=== PATIENT | male | born 1960 | race Caucasian/White ===

== ENCOUNTER 2024-01-07 08:27 | Observation (INO) | payer MEDICARE, SELFPAY ==
[2024-01-07] VITALS (7 sets, daily range): BP systolic 119–147; BP diastolic 33–82; PULSE 79–92; TEMP 36.9–37.6; O2SAT 93–97; BMI 25.7; BMI 25.8
[2024-01-07 09:28] LABS: Hematocrit 40.8 % (42.0-54.0); Hemoglobin 14.6 g/dL (14.0-18.0); Mean Corpuscular HGB Conc 35.8 g/dL (29.9-35.2); Mean Corpuscular Hemoglobin 33.6 pg (25.9-34.0); Mean Platelet Volume 10.1 fL (9.5-13.5); Platelet Count 90 10^3/uL (150-450); Red Blood Count 4.34 10^6/uL (4.70-6.10); Red Cell Distribution Width 12.1 % (11.0-15.0); White Blood Count 3.2 10^3/uL (4.0-11.0)
[2024-01-07 09:34] LABS: Erythrocyte Sedimentation Rate 51 mm/hr (<=20)
[2024-01-07 09:44] LABS: Anion Gap 14.7; BUN Creatinine Ratio 15.6; C Reactive Protein 14.75 mg/dL (<=0.50); Calcium 8.7 mg/dL (8.5-10.1); Chloride 102 mmol/L (98-107); Estimated GFR (African America >60 (>=60); Estimated GFR (Non-African Ame >60 (>=60); Glucose 171 mg/dL (74-106); Potassium 3.7 mmol/L (3.5-5.1); Sodium 138 mmol/L (136-145)
[2024-01-07 09:46] LABS: Lymphocytes Absolute Manual 0.25 10^3/uL (1.20-3.80); Monocytes Absolute Manual 0.09 10^3/uL (0.30-0.80); Segmented Neut Absolute Manual 2.81 10^3/uL (1.4-6.5)
[2024-01-07 09:48] LABS: Lactate/Lactic Acid 2.1 mmol/L (0.4-2.0)
--- NOTE | 2024-01-07 11:07 | P.HP_ITS ---
HPI H&P: HPI History of Present Illness Chief complaint: LEFT FOOT SWELLING Narrative: Patient presented to the emergency room after being treated for foot infection. Was seen in urgent care earlier in the week, line was placed for where the erythema was added at the time, erythema was spreading, pressure increasing as well. Patient had fever up to 103. In the emergency room the erythema is outside the line of demarcation. When I saw the patient in the emergency room, patient was resting comfortably in bed, no complaints other than the left foot. Opioid HPI Opioid Management Most Recent Pain and Opioid Data: Last Pain Scale 4 01/07/24 09:08 Review of Systems ROS Status of ROS 10 or more systems reviewed and unremark able except as noted in history and below Meds Home Medications and Allergies Home Medications ?Medication ?Instructions ?Recorded ?Confirmed ?Type cephalexin 500 mg capsule 500 mg PO Q12H 01/07/24 01/07/24 History timolol maleate 0.5 % eye drops 1 drp ophthalmic (eye) .qd 01/07/24 01/07/24 History Allergies Allergy/AdvReac Type Severity Reaction Status Date / Time No Known Drug Allergies Allergy Verified 01/07/24 08:38 Exam Constitutional Vital Signs, click to edit/add: Last Vital Signs Temp 99.3 F 01/07/24 08:38 Pulse 79 01/07/24 08:38 Resp 18 01/07/24 08:38 BP 147/82 H 01/07/24 08:38 Pulse Ox 97 01/07/24 08:38 O2 Del Method Room Air 01/07/24 08:38 Documenting provider has reviewed patient's vital signs: yes Common normals: no apparent distress Chest Common normals: inspection of chest normal Respiratory Common normals: normal respiratory effort Cardio Common normals: regular rate, regular rhythm and no murmurs GI Common normals: Normal to inspection, nondistended, normoactive bowel sounds present Extremity Common normals: abnormal to inspection (Cellulitis outside the line of the demarcation left foot.) Results Labs Labs: Short CBC 01/07/24 Range/Units 09:01 WBC 3.2 L (4.0-11.0) 10^3/uL Hgb 14.6 (14.0-18.0) g/dL Hct 40.8 L (42.0-54.0) % Plt Count 90 L (150-450) 10^3/uL BMP 01/07/24 09:01 Sodium 138 Potassium 3.7 Chloride 102 Carbon Dioxide 25.0 BUN 17.0 Creatinine 1.09 Glucose 171 H Calcium 8.7 Assessment and Plan Assessment and Plan (1) Cellulitis: Plan Admission findings: Patient with outpatient treatment for left foot cellulitis with cephalexin 500 mg twice a day, with fever 103. Progressive outside line of demarcation. In ER patient found to have positive lactic acidosis, neutropenia, significant elevated sedimentation rate and CRP and hyperglycemia resulting in severe sepsis (neutropenia, Fever (102), + lactic acidosis with source of infect ion left foot).-this is as a result of the cellulitis of his left foot. Failed outpatient treatment. Admitted for IV antibiotics. Blood cultures pending. Patient with a history of cellulitis of the same leg in the past that progressed into severe sepsis and required long-term hospitalization. Neutropenia-possibly due to sepsis-monitor daily Hyperglycemia on admission-this is likely just a nonfasting state-monitor daily Thrombocytopenia-likely possibly related to the severe sepsis as outlined above, monitor daily Glaucoma-continue with home medication Admission findings: Patient does meet criteria for severe sepsis as outlined above, currently blood pressure stable so hold off on large fluid boluses. Patient already with edema in lower extremity. Because the source of the infection appears to be localized to the left foot, start patient off as observation status, possible discharge in a.m.
--- NOTE | 2024-01-07 11:09 | ED_ITS ---
HPI HPI - General Adult General Chief complaint: Extremity Injury, Lower Stated complaint: LEFT FOOT SWELLING Time Seen by Provider: 01/07/24 08:43 Source: patient Mode of arrival: walk-in Limitations: no limitations History of Present Illness HPI narrative: 63-year-old male to the emergency department she went cellulitis of the left lower extremity. Symptoms began about 3 days ago. He reports that he was seen in an urgent care 2 days ago and started on Keflex. He has taken 3 doses of Keflex. They outlined the area of cellulitis and it is extended beyond that despite being on the Keflex. He denies any fever, sweats, chills. He has a history of lymphedema secondary to remote trauma in the lower extremity. Reports he is otherwise healthy. Related Data Home Medications ?Medication ?Instructions ?Recorded ?Confirmed cephalexin 500 mg capsule 500 mg PO Q12H 01/07/24 01/07/24 timolol maleate 0.5 % eye drops 1 drp ophthalmic (eye) .qd 01/07/24 01/07/24 Allergies Allergy/AdvReac Type Severity Reaction Status Date / Time No Known Drug Allergies Allergy Verified 01/07/24 08:38 Opioid HPI Opioid Management Most Recent Opioid Data: Last Pain Scale 4 01/07/24 09:08 Review of Systems ROS Status of ROS 10 or more systems reviewed and unremark able except as noted in h istory and below Exam Narrative Exam Narrative: VITALS: I have reviewed the triage vital signs. GENERAL: Well developed, well appearing adult in no acute distress. NEURO: Alert and oriented. Moves all extremities. Face is symmetric and expressive. EYES: PERRL. No scleral icterus or conjunctival injection. No discharge. HENT: Normocephalic, atraumatic. Hearing is grossly intact. Nares grossly patent and without discharge. Mucous membranes moist. NECK: No JVD. Patient moves neck without restriction. CARDIO: Rhythm regular. Normal rate. No murmur, rub, or gallop. Pulses equal bilaterally in the upper and lower extremity. No lower extremity edema. PULM: Lungs clear to auscultation in all ochoa. No wheezes, rales, or rhonchi. No conversational dyspnea. No splinting, stridor, or accessory muscle use. GI/: Abdomen is soft and non-tender. Normoactive bowel sounds. Left lower: Trace edema about the lower extremity. There is erythema, warmth, erythematous rash extending above the ankle. Redness is extending beyond the marked area. No crepitus. No obvious wounds. No abscess. Limb is neurovascularly intact SKIN: Warm and dry. Normal turgor. No rash or lesions appreciated. PSYCH: Mood, affect, and interaction is appropriate to the setting. Constitutional Vital Signs, click to edit/add: Last Vital Signs Temp 99.3 F 01/07/24 08:38 Pulse 79 01/07/24 08:38 Resp 18 01/07/24 08:38 BP 147/82 H 01/07/24 08:38 Pulse Ox 97 01/07/24 08:38 O2 Del Method Room Air 01/07/24 08:38 Course Vital Signs Vital signs: Vital Signs Temperature 99.3 F 01/07/24 08:38 Pulse Rate 79 01/07/24 08:38 Respiratory Rate 18 01/07/24 08:38 Blood Pressure 147/82 H 01/07/24 08:38 Pulse Oximetry 97 01/07/24 08:38 Oxygen Delivery Method Room Air 01/07/24 08:38 Temperature 99.3 F 01/07/24 08:38 Pulse Rate 79 01/07/24 08:38 Respiratory Rate 18 01/07/24 08:38 Blood Pressure 147/82 H 01/07/24 08:38 Pulse Oximetry 97 01/07/24 08:38 Oxygen Delivery Method Room Air 01/07/24 08:38 Medical Decision Making MDM Narrative Medical decision making narrative: 63-year-old male to the emergency department chief complaint cellulitis of left lower extremity. Vital stable, the patient is afebrile. Limb is neurovascularly intact. Given failed outpatient course of antibiotics lab work is ordered. Does have a leukopenia and thrombocytopenia which are chronic in nature but worse today. Mild lactic acidosis. Will refer the patient for observation given worsening cellulitis and failed o utpatient treatment with oral antibiotics. Has a history of cellulitis with sepsis in this extremity Dr. Caldwell will admit. Vancomycin ordered. Medical Records Medical records reviewed: Yes I reviewed the patient's medical records Lab Data Lab results reviewed: Yes I reviewed the patient's lab results Labs: Lab Results 01/07/24 Range/Units 09:01 WBC 3.2 L (4.0-11.0) 10^3/uL RBC 4.34 L (4.70-6.10) 10^6/uL Hgb 14.6 (14.0-18.0) g/dL Hct 40.8 L (42.0-54.0) % MCV 94.0 (80.0-94.0) fL MCH 33.6 (25.9-34.0) pg MCHC 35.8 H (29.9-35.2) g/dL RDW 12.1 (11.0-15.0) % Plt Count 90 L (150-450) 10^3/uL MPV 10.1 (9.5-13.5) fL Seg Neuts % (Manual) 88.0 Band Neutrophils % 1.0 (0-5) % Lymphocytes % (Manual) 8.0 L (20.5-60.0) % Monocytes % (Manual) 3.0 (1.7-12.0) % Eosinophils % (Manual) 0.0 L (0.9-7.0) % Basophils % (Manual) 0.0 L (0.2-2.0) % Neutrophils # (Manual) 2.81 (1.4-6.5) 10^3/uL Band Neutrophils # 0.0 (0.0-0.3) 10^3/uL Lymphocytes # (Manual) 0.25 L (1.20-3.80) 10^3/uL Monocytes # (Manual) 0.09 L (0.30-0.80) 10^3/uL Eosinophils # (Manual) 0.00 (0.00-0.70) 10^3/uL Basophils # (Manual) 0.00 (0.00-0.10) 10^3/uL ESR 51 H (<=20) mm/hr Sodium 138 (136-145) mmol/L Potassium 3.7 (3.5-5.1) mmol/L Chloride 102 (98-107) mmol/L Carbon Dioxide 25.0 (21.0-32.0) mmol/L Anion Gap 14.7 BUN 17.0 (7.0-18.0) mg/dL Creatinine 1.09 (0.70-1.30) mg/dL Est GFR ( Amer) >60 (>=60) Est GFR (Non-Af Amer) >60 (>=60) BUN/Creatinine Ratio 15.6 Glucose 171 H (74-106) mg/dL Lactate 2.1 H (0.4-2.0) mmol/L Calcium 8.7 (8.5-10.1) mg/dL C-Reactive Protein 14.75 H (<=0.50) mg/dL Discharge Plan Discharge Chief Complaint: Extremity Injury, Lower Clinical Impression: Cellulitis, Failure of outpatient treatment, Acidosis, lactic Patient Disposition: Admitted as Observation Time of Disposition Decision: 11:13 Condition: Fair Prescriptions / Home Meds: No Action cephalexin 500 mg capsule 500 mg PO Q12H timolol maleate 0.5 % drops 1 drp OPHTHALMIC (EYE) .qd Print Language: Jamaican Referrals: Leandra Magana MD [Primary Care Provider] - 1 week
[2024-01-07] MEDS: VANCOMYCIN HCL 1,000 MG in 0.9 % SODIUM CHLORIDE 250 ML 250 MG IV (11:18)
[2024-01-07 11:26] LABS: Alanine Aminotransferase 33 U/L (16-63); Albumin Globulin Ratio 0.8; Alkaline Phosphatase 76 U/L (46-116); Aspartate Amino Transferase 29 U/L (15-37); Bilirubin Direct 0.2 mg/dL (0.0-0.2); Bilirubin Total 0.7 mg/dL (0.2-1.0); Globulin 3.9 g/dL; Total Protein 6.9 g/dL (6.4-8.2)
[2024-01-07] MEDS: PIPERACILLIN SODIUM/TAZOBACTAM 3.375 GM in 0.9 % SODIUM CHLORIDE 50 ML IV ×2 (13:39→21:17)
[2024-01-07] MEDS: 0.9 % SODIUM CHLORIDE 250 ML 10 ML IV (13:39)
[2024-01-07 14:15] LABS: Lactate/Lactic Acid 3.8 mmol/L (0.4-2.0)
[2024-01-07] MEDS: VANCOMYCIN HCL 1,000 MG in 0.9 % SODIUM CHLORIDE 250 ML 150 MG IV (23:07)
[2024-01-08 04:00] VITALS: BP 132/81; PULSE 80; TEMP 37.2; O2SAT 95
[2024-01-08 05:34] LABS: Eosinophils Percent Auto 0.5 % (0.9-7.0); Hematocrit 38.5 % (42.0-54.0); Hemoglobin 13.3 g/dL (14.0-18.0); Immature Granulocytes Abs Auto 0.01 10^3/uL (0.00-0.03); Immature Granulocytes Pct Auto 0.3 % (0.0-0.5); Lymphocytes Absolute Auto 0.8 10^3/uL (1.2-3.8); Lymphocytes Percent Auto 20.2 % (20.5-60.0); Mean Corpuscular HGB Conc 34.5 g/dL (29.9-35.2); Mean Corpuscular Hemoglobin 32.8 pg (25.9-34.0); Mean Corpuscular Volume 95.1 fL (80.0-94.0); Mean Platelet Volume 10.2 fL (9.5-13.5); Monocytes Absolute Auto 0.3 10^3/uL (0.3-0.8); Monocytes Percent Auto 6.7 % (1.7-12.0); Neutrophils Absolute Auto 2.7 10^3/uL (1.4-6.5); Neutrophils Percent Auto 72.3 % (43.0-75.0); Platelet Count 79 10^3/uL (150-450); Red Blood Count 4.05 10^6/uL (4.70-6.10); White Blood Count 3.7 10^3/uL (4.0-11.0)
[2024-01-08 05:41] LABS: Erythrocyte Sedimentation Rate 81 mm/hr (<=20)
[2024-01-08] MEDS: PIPERACILLIN SODIUM/TAZOBACTAM 3.375 GM in 0.9 % SODIUM CHLORIDE 50 ML IV (05:41)
[2024-01-08 05:52] LABS: Anion Gap 12.8; C Reactive Protein 8.07 mg/dL (<=0.50); Calcium 8.5 mg/dL (8.5-10.1); Carbon Dioxide 26.7 mmol/L (21.0-32.0); Chloride 104 mmol/L (98-107); Estimated GFR (African America >60 (>=60); Estimated GFR (Non-African Ame >60 (>=60); Glucose 111 mg/dL (74-106); Potassium 3.5 mmol/L (3.5-5.1); Sodium 140 mmol/L (136-145)
[2024-01-08 07:43] VITALS: BP 136/87; PULSE 55; TEMP 36.7; O2SAT 96
--- NOTE | 2024-01-08 07:55 | P.DS_ITS ---
DS: Providers Provider Date of admission: 01/07/24 11:23 Primary care physician: Leandra Magana MD Consults: 01/07/24 11:01 Consult to Pharmacy Routine Consulting Provider: Reason for consultation: Please [place] me when Med Rec is Updated Has provider been notified: No DS: Diagnosis Discharge Diagnosis (1) Cellulitis: Plan Admission findings: Patient with outpatient treatment for left foot cellulitis with cephalexin 500 mg twice a day, with fever 103. Progressive outside line of demarcation. In ER patient found to have positive lactic acidosis, neutropenia, significant elevated sedimentation rate and CRP and hyperglycemia resulting in severe sepsis (neutropenia, Fever (102), + lactic acidosis with source of infection left foot).-this is as a result of the cellulitis of his left foot. Failed outpatient treatment. Admitted for IV antibiotics. Improving at time of discharge Neutropenia-possibly due to sepsis-stable at the time of discharge, recommend workup as an outpatient Hyperglycemia on admission-this is likely just a nonfasting state-monitor daily Thrombocytopenia-Down somewhat at the time of discharge, would recommend following up with us as an outpatient has been low for quite some time Glaucoma-continue with home medication Admission findings: Patient does meet criteria for severe sepsis as outlined angelina burgess, currently blood pressure stable so hold off on large fluid boluses. Patient already with edema in lower extremity. Because the source of the infection appears to be localized to the left foot, start patient off as observation status, possible discharge in a.m. ? DS: Summary Hospital Course Hospital Course: Patient was admitted with failed outpatient treatment of cellulitis of his foot, placed on IV antibiotics, foot felt better to him, less swelling on the day of discharge, erythema is at the line and just slightly beyond the line of demarcation, but essentially the same as it was the previous day. Blood cultures are pending but nothing in the immediate rapid identification panel, at this point without further progression and somewhat improved, he will be discharged home in improving condition. Medications see list. Follow-up with PCP within the next week. Longstanding history of neutropenia and thrombocytopenia-recommend hematology workup as an outpatient Status at Discharge Overall status at discharge: patient is not back to baseline Time Spent with Patient Time attestation: Total time spent providing and/or coordinating discharge services: Time spent: greater than 30 minutes Exam Constitutional Vital Signs, click to edit/add: Last Vital Signs Temp 98.0 F 01/08/24 07:43 Pulse 55 L 01/08/24 07:43 Resp 18 01/08/24 04:00 BP 136/87 01/08/24 07:43 Pulse Ox 96 01/08/24 07:43 O2 Del Method Room Air 01/08/24 04:00 Documenting provider has reviewed patient's vital signs: yes Common normals: no apparent distress Chest Common normals: inspection of chest normal Respiratory Common normals: normal respiratory effort Cardio Common normals: regular rate, regular rhythm and no murmurs GI Common normals: Normal to inspection, nondistended, normoactive bowel sounds present Extremity Common normals: abnormal to inspection (Essentially unchanged from the previous day except last swelling left foot) DS: Data Data Completed and Pending Labs on day of discharge: Labs from last 24 hours 01/08/24 01/07/24 01/07/24 04:49 13:28 09:01 WBC 3.7 L 3.2 L RBC 4.05 L 4.34 L Hgb 13.3 L 14.6 Hct 38.5 L 40.8 L MCV 95.1 H 94.0 MCH 32.8 33.6 MCHC 34.5 35.8 H RDW 12.0 12.1 Plt Count 79 L 90 L MPV 10.2 10.1 Neut % (Auto) 72.3 Lymph % (Auto) 20.2 L [place] % (Auto) 6.7 Eos % (Auto) 0.5 L Baso % (Auto) 0.0 L Neut # (Auto) 2.7 Lymph # (Auto) 0.8 L [place] # (Auto) 0.3 Eos # (Auto) 0.0 Baso # (Auto) 0.0 Abs Immat Gran (auto) 0.01 Seg Neuts % (Manual) 88.0 Band Neutrophils % 1.0 Lymphocytes % (Manual) 8.0 L Monocytes % (Manual) 3.0 Eosinophils % (Manual) 0.0 L Basophils % (Manual) 0.0 L Imm/Tot Granulo (auto) 0.3 Neutrophils # (Manual) 2.81 Band Neutrophils # 0.0 Lymphocytes # (Manual) 0.25 L Monocytes # (Manual) 0.09 L Eosinophils # (Manual) 0.00 Basophils # (Manual) 0.00 ESR 81 H 51 H Sodium 140 138 Potassium 3.5 3.7 Chloride 104 102 Carbon Dioxide 26.7 25.0 Anion Gap 12.8 14.7 BUN 11.0 17.0 Creatinine 1.00 1.09 Est GFR ( Amer) >60 >60 Est GFR (Non-Af Amer) >60 >60 BUN/Creatinine Ratio 11.0 15.6 Glucose 111 H 171 H Lactate 3.8 H* 2.1 H Calcium 8.5 8.7 Total Bilirubin 0.7 Direct Bilirubin 0.2 AST 29 ALT 33 Alkaline Phosphatase 76 C-Reactive Protein 8.07 H 14.75 H Total Protein 6.9 Albumin 3.0 L Globulin 3.9 Albumin/Globulin Ratio 0.8 Discharge Plan Discharge Disposition: Home, Self-Care Condition: Fair Discharge Medications: New doxycycline monohydrate 100 mg capsule 100 mg PO BID 14 Days Qty: 28 0RF levofloxacin 750 mg tablet 750 mg PO DAILY 14 Days Qty: 14 0RF Continued timolol maleate 0.5 % drops 1 drp OPHTHALMIC (EYE) .qd Discontinued cephalexin 500 mg capsule 500 mg PO Q12H Activity: increase activity as tolerated Diet: advance to your usual diet Print Language: Portuguese Patient Instructions: Doxycycline (By mouth), Levofloxacin (By mouth) (Levaquin, Levaquin Leva-kevin), Cellulitis (GEN) Forms: Portal Instructions Follow Up Appointments: January 10 @ 9:45am with Dr. Magana [phone] Discharge Date/Time: 01/08/24 11:31
--- NOTE | 2024-01-08 08:54 | CM.NOTE ---
Michell made with Dr. Caldwell. Discharge later today after completing IV antibiotics @ noon. Follow up with PCP this week. Verbalizes understanding.
--- NOTE | 2024-01-08 09:56 | SWNOTE1 ---
SW met with pt to discuss dc needs. Pt lives at home with his . Pt does not use any DME at home and is independent. Pt has no concerns about discharge at this time. SW to follow as needed. Medicare Outpatient Observation Notice reviewed and discussed with patient. Pt. verbalized understanding and signed the form. Original given to patient and copy placed in patient?s chart.
[2024-01-08] MEDS: VANCOMYCIN HCL 1,000 MG in 0.9 % SODIUM CHLORIDE 250 ML 250 MG IV (10:06)
--- NOTE | 2024-01-08 11:28 | PC.NURSE ---
iv dc'd for discharge. discharge instructions explained to pt and . both verbalize understanding. ambulated to exit with steady gait, discharged to private vehicle.
--- NOTE | 2024-01-09 12:23 | CM.DCFOLLOWU ---
1st attempt 01/09/24
--- NOTE | 2024-01-10 11:18 | CM.DCFOLLOWU ---
2nd attempt 01/10/24
--- NOTE | 2024-01-11 14:13 | CM.DCFOLLOWU ---
3rd attempt 01/11/24
== END 2024-01-08 11:31 | disposition home or self-care (01) ==
LOC: ER 11:14 → MS 11:26
PROVIDERS: Admitting Provider Family Medicine; Emergency Provider Student in an Organized Health Care Education/Training Program; PCP Family Medicine; Visit Provider Family Medicine
DX: A41.9 Sepsis, unspecified organism (principal); L03.116 Cellulitis of left lower limb; R65.20 Severe sepsis without septic shock; D70.9 Neutropenia, unspecified; R73.9 Hyperglycemia, unspecified; D69.6 Thrombocytopenia, unspecified; H40.9 Unspecified glaucoma; R70.0 Elevated erythrocyte sedimentation rate; R79.82 Elevated C-reactive protein (CRP); E87.20 Acidosis, unspecified
CPT/HCPCS: 36415; 80048; 80076; 83605; 85007; 85025; 85027; 85652; 86140; 87040; 94761; 96365; 96366; 96367; 99285; G0378; J2543; J3370